=== PATIENT | female | born 1945 | race Caucasian/White ===

== ENCOUNTER 2019-10-24 19:15 | Emergency (ER) | payer MEDICARE, MEDICAID ==
[~2019-10-24] VITALS: Ht 170.2 cm; Wt 92.2 kg
--- NOTE | 2019-10-24 19:21 | PHYS DOC ---
Adult General Chief Complaint Chief Complaint: N/D [facility] HPI Patient is a 74 year old female who is brought by EMS secondary to 7 hours of nausea with diarrhea. Patient has sick contacts with similar symptoms recently. No fever reported. Patient was given 4 mg of Zofran in route and is currently receiving a 500 mL lactated Ringer bolus. She denies chest pain or shortness of breath but she has a cardiac history that is rather extensive. Review of Systems Review of Systems All other ROS is negative unless otherwise stated in HPI Allergies Allergies Allergies Coded Allergies Type Severity Reaction Last Updated Verified No Known Drug Allergies 10/24/19 No Physical Exam Physical Exam See above Constitutional: Well developed, well nourished, no acute distress, non-toxic appearance. [] HENT: Normocephalic, atraumatic, bilateral external ears normal, oropharynx moist, no oral exudates, nose normal. [] Eyes: PERRLA, EOMI, conjunctiva normal, no discharge. [] Neck: Normal range of motion, no tenderness, supple, no stridor. [] Cardiovascular:Heart rate regular rhythm, no murmur [] Lungs & Thorax: Bilateral breath sounds clear to auscultation [] Abdomen: Bowel sounds normal, soft, no tenderness, no masses, no pulsatile masses. [] Skin: Warm, dry, no erythema, no rash. [] Back: No tenderness, no CVA tenderness. [] Extremities: No tenderness, no cyanosis, no clubbing, ROM intact, no edema. [] Neurologic: Alert and oriented X 3, normal motor function, normal sensory function, no focal deficits noted. [] Psychologic: Affect normal, judgement normal, mood normal. [] Current Patient Data Vital Signs Vital Signs Date Time Temp Pulse Resp B/P (MAP) Pulse Ox O2 Delivery O2 Flow Rate FiO2 10/24/19 19:24 98.7 89 16 115/52 (73) 94 Room Air 98.7 Lab Values Laboratory Tests Test 10/24/19 19:45 White Blood Count 18.8 x10^3/uL (4.0-11.0) H Red Blood Count 4.66 x10^6/uL (3.50-5.40) Hemoglobin 12.4 g/dL (12.0-15.5) Hematocrit 38.7 % (36.0-47.0) Mean Corpuscular Volume 83 fL (79-100) Mean Corpuscular Hemoglobin 27 pg (25-35) Mean Corpuscular Hemoglobin Concent 32 g/dL (31-37) Red Cell Distribution Width 15.2 % (11.5-14.5) H Platelet Count 326 x10^3/uL (140-400) Neutrophils (%) (Auto) 90 % (31-73) H Lymphocytes (%) (Auto) 4 % (24-48) L Monocytes (%) (Auto) 5 % (0-9) Eosinophils (%) (Auto) 1 % (0-3) Basophils (%) (Auto) 0 % (0-3) Neutrophils # (Auto) 17.0 x10^3/uL (1.8-7.7) H Lymphocytes # (Auto) 0.8 x10^3/uL (1.0-4.8) L Monocytes # (Auto) 0.9 x10^3/uL (0.0-1.1) Eosinophils # (Auto) 0.1 x10^3/uL (0.0-0.7) Basophils # (Auto) 0.1 x10^3/uL (0.0-0.2) Segmented Neutrophils % 88 % (35-66) H Band Neutrophils % 6 % (0-9) Lymphocytes % 4 % (24-48) L Monocytes % 2 % (0-10) Platelet Estimate Adequate (ADEQUATE) Sodium Level 142 mmol/L (136-145) Potassium Level 4.4 mmol/L (3.5-5.1) Chloride Level 104 mmol/L (98-107) Carbon Dioxide Level 27 mmol/L (21-32) Anion Gap 11 (6-14) Blood Urea Nitrogen 32 mg/dL (7-20) H Creatinine 1.2 mg/dL (0.6-1.0) H Estimated GFR (Cockcroft-Gault) 43.9 Glucose Level 117 mg/dL (70-99) H Calcium Level 9.1 mg/dL (8.5-10.1) Troponin I Quantitative < 0.017 ng/mL (0.000-0.055) Influenza Type A Antigen Negative (NEGATIVE) Influenza Type B Antigen Negative (NEGATIVE) Laboratory Tests 10/24/19 19:45 Laboratory Tests 10/24/19 19:45 EKG EKG [] Radiology/Procedures Radiology/Procedures [] Course & Med Decision Making Course & Med Decision Making Pertinent Labs and Imaging studies reviewed. (See chart for details) Patient seen for nausea and diarrhea. We'll check labs and finished 500 mL left in a regular bolus. Obtain EKG due to cardiac history. 2042: Patient's EKG is unremarkable. Her workup is complete and she does have rather significant leukocytosis likely from nausea and diarrhea. Her left lites and kidney function are stable. She is feeling better after 500 mL bolus but given her history of diarrhea I will go ahead and give her 1 additional liter of normal saline. After that the patient will be discharged home with a prescription for Zofran and she is instructed to push fluids and return to the ER if her symptoms worsen. Patient voices understanding and is stable for discharge. Dragon Disclaimer Dragon Disclaimer This electronic medical record was generated, in whole or in part, using a voice recognition dictation system. Departure Departure Impression: Primary Impression: Viral gastroenteritis Disposition: HOME, SELF-CARE Condition: IMPROVED Patient Instructions: Viral Gastroenteritis Additional Instructions: Please push oral fluids. If you feel as though your becoming dehydrated you may take Imodium to help with diarrhea or return to the ER. Scripts Ondansetron (ONDANSETRON ODT) 4 Mg Tab.rapdis 1 TAB PO PRN Q6-8HRS, #16 TAB Prov: SURY SCHULER DO 10/24/19 SURY SCHULER DO Oct 24, 2019 19:21
[2019-10-24 19:24] VITALS: BP 115/52
[2019-10-24 19:51] LABS: BASO # 0.1 x10^3/uL (0.0-0.2); BASO % 0 % (0-3); EOS # 0.1 x10^3/uL (0.0-0.7); EOS % 1 % (0-3); HEMATOCRIT 38.7 % (36.0-47.0); HEMOGLOBIN 12.4 g/dL (12.0-15.5); LYMPH # 0.8 x10^3/uL (1.0-4.8); LYMPH % 4 % (24-48); MEAN CORPUSCULAR HEMOGLOBIN 27 pg (25-35); MEAN CORPUSCULAR HGB CONC 32 g/dL (31-37); MEAN CORPUSCULAR VOLUME 83 fL (79-100); MONO # 0.9 x10^3/uL (0.0-1.1); MONO % 5 % (0-9); NEUT % 90 % (31-73); PLATELET COUNT 326 x10^3/uL (140-400); RED BLOOD COUNT 4.66 x10^6/uL (3.50-5.40); RED CELL DISTRIBUTION WIDTH 15.2 % (11.5-14.5); WHITE BLOOD COUNT 18.8 x10^3/uL (4.0-11.0)
[2019-10-24 19:59] LABS: CALCIUM 9.1 mg/dL (8.5-10.1); CREATININE 1.2 mg/dL (0.6-1.0); GFR 43.9; POTASSIUM 4.4 mmol/L (3.5-5.1)
[2019-10-24 20:16] LABS: INFLUENZA A PATIENT NEGATIVE (NEGATIVE); INFLUENZA B PATIENT NEGATIVE (NEGATIVE)
[2019-10-24 20:25] LABS: % BANDS 6 % (0-9); % LYMPHS 4 % (24-48); % MONOS 2 % (0-10); % SEGS 88 % (35-66); PLT ESTIMATE ADEQUATE (ADEQUATE)
[2019-10-24] MEDS ORDERED: ONDA4TAB12 PO (20:45)
[2019-10-24] MEDS ORDERED: IV NORMAL SALINE 1000ML BAG 1,000 ML IV ONE (20:45)
--- NOTE | 2019-10-25 07:03 | EKG ---
[facility] [address] [place] [address] Test Date: 2019-10-24 Test Time: 19:29:44 Pat Name: MARIA FERNANDA URIAS Department: Room: Gender: F Color Adviser: : 1945 Requested By: SURY SCHULER Order Number: [id number] Reading MD: Measurements Intervals Arthur Rate: 72 P: 90 IN: 152 QRS: -95 QRSD: 136 T: 96 QT: 416 QTc: 462 Interpretive Statements SINUS RHYTHM VENTRICULAR PREMATURE COMPLEX(ES) ABNORMAL RIGHT SUPERIOR AXIS DEVIATION NON SPECIFIC INTRAVENTRICULAR BLOCK QRS(T) CONTOUR ABNORMALITY CONSISTENT WITH INFERIOR INFARCT PROBABLY OLD ABNORMAL ECG No previous ECG available for comparison
== END 2019-10-24 21:59 | disposition home or self-care (01) ==
LOC: ER 19:15
DX: A08.4 Viral intestinal infection, unspecified (principal)
CPT/HCPCS: 36415; 80048; 84484; 85007; 85025; 87804; 93005; 96360; 99284; J7030

== ENCOUNTER 2021-11-16 00:55 | Emergency (ER) | payer OTHER, MEDICAID ==
[~2021-11-16] VITALS: Ht 170.2 cm; Wt 86.3 kg
[~2021-11-16 00:55] MED LIST: ONDA4TAB12 PO
[2021-11-16] MEDS ORDERED: OXYMETAZOLINE 0.05% NASAL SPRAY 30ML BOTTLE. NS ONE (00:57)
[2021-11-16] MEDS ORDERED: OXYM30SP25 NS (02:32)
[2021-11-16] MEDS ORDERED: ocean nasal spray NAS (02:32)
--- NOTE | 2021-11-16 02:32 | PHYS DOC ---
Past Medical History Past Medical History: Cancer, Heart Disease Past Surgical History: Pacemaker Smoking Status: Never Smoker Alcohol Use: None Adult General Chief Complaint Chief Complaint: NOSEBLEED HPI HPI The patient is a 76-year-old female with a history of hypertension, hyperlipidemia, coronary artery disease status post CABG, paroxysmal atrial fibrillation on Eliquis, hypothyroidism. Ms. Rubio presents for evaluation of a nosebleed starting about 45 minutes prior to arrival. She was unable to get it to stop at home so called EMS to bring her to the hospital. On initial evaluation she has mild oozing right- sided anterior epistaxis. She denies other complaints, is alert, oriented x4, pleasantly and appropriately interactive and in no acute distress with appropriate vital signs aside from elevated blood pressure. Review of Systems Review of Systems A 12 point review of systems was completed and was negative except where noted in HPI above. Current Medications Current Medications Current Medications Medications (Trade) Dose Ordered Sig/Marichuy Start Time Stop Time Status Last Admin Dose Admin Oxymetazoline HCl (Afrin) 120 spray STK-MED ONCE 11/16/21 00:57 11/16/21 00:57 DC Allergies Allergies Allergies Coded Allergies Type Severity Reaction Last Updated Verified No Known Drug Allergies 10/24/19 No Physical Exam Physical Exam Elderly female appearing nontoxic and in no acute distress. Head is normocephalic and atraumatic. Neck is supple and nontender. Oropharynx is moist. There is mild oozing anterior epistaxis to the right naris without an obvious bleeding vessel easily visualized. Lungs are clear to auscultation at all stations. There is a normal S1 and S2 without rubs or gallops and capillary refill is appropriate, less than 2 seconds globally. Abdomen is soft, nontender and nondistended. Skin is warm and dry without cyanosis, clubbing or edema. Psychiatrically, the patient demonstrates appropriate mood and affect and is alert. Evaluation of the extremities reveals BUEs and BLEs neurovascularly intact distally with strength 5 out of 5, sensation intact light touch in all nerve distributions, radial, DP and PT pulses 2+ and equal bilaterally, capillary refill less than 2 seconds, hands and feet warm and well-perfused. No dependent peripheral edema distally. No calf tenderness or swelling bilaterally. Homans test is negative bilaterally. Current Patient Data Vital Signs Vital Signs Date Time Temp Pulse Resp B/P (MAP) Pulse Ox O2 Delivery O2 Flow Rate FiO2 11/16/21 01:04 97.8 64 18 212/91 (131) 97 Room Air 97.8 EKG EKG [] Radiology/Procedures Radiology/Procedures [] Course & Med Decision Making Course & Med Decision Making Epistaxis resolved with evacuation of clot, instillation of Afrin into the affected naris and direct pressure after that. Patient observed after resolution of epistaxis and reports all symptoms have resolved and that she feels better. In view of resolution of symptoms in this well-appearing elderly female, will discharge home with Eliquis and [place] saline nasal spray for use as needed. She is to follow-up closely with primary care and to return to the emergency department right away if symptoms worsen or if other new symptoms of concern develop. All questions are answered. Dragon Disclaimer Dragdonaldo Disclaimer This electronic medical record was generated, in whole or in part, using a voice recognition dictation system. Departure Departure Impression: Primary Impression: Acute anterior epistaxis Disposition: HOME / SELF CARE / HOMELESS Condition: IMPROVED Patient Instructions: Nosebleed Additional Instructions: Follow-up very closely with your primary care doctor in the office in the next 2 to 4 days for a reevaluation of your symptoms and a discussion of next best steps in care. Use the [place] nasal spray 2 or 3 times a day to help keep your nasal passages moist. If you have a recurrent nosebleed, blow your nose to expel clot, spray the Afrin nasal spray up the affected nostril, and then apply good strong direct pressure just underneath the nasal bridge for 20 minutes. If bleeding continues, repeat the entire procedure at least once more. Return to the emergency department right away for worsening symptoms of any kind or with any other new symptoms of concern. Scripts [ocean nasal spray] No Conflict Check 1 SPRAY NII TID, #1 EA Prov: INDER LEI MD 11/16/21 Oxymetazoline Hcl (AFRIN) 30 Ml [place] 2 SPR NS QID PRN for nosebleed, #1 SPRAY Prov: INDER LEI MD 11/16/21 INDER LEI MD Nov 16, 2021 02:32
[2021-11-16 02:50] VITALS: BP 198/92
== END 2021-11-16 02:56 | disposition home or self-care (01) ==
LOC: ER 00:55
DX: I10 Essential (primary) hypertension (principal); R04.0 Epistaxis; I48.0 Paroxysmal atrial fibrillation; E03.9 Hypothyroidism, unspecified; Z79.01 Long term (current) use of anticoagulants; Z95.0 Presence of cardiac pacemaker; Z86.79 Personal history of other diseases of the circulatory system; I25.10 Atherosclerotic heart disease of native coronary artery without angina pectoris
CPT/HCPCS: 99283